=== PATIENT | female | born 1930 | race Caucasian/White ===

== ENCOUNTER 2016-09-12 12:39 | Emergency (ER) | payer BC ==
[~2016-09-12 12:39] MED LIST: ACET500CAP PO; APRES25 PO; ARICEPT10 PO; ASAB PO; ASACOL PO; CALCIUM & VIT D; CALTRA600D PO; COZAAR100 MG PO; DEMA10T PO; DESONATE0.05 % V; DIOV160 PO; DURA25 TOP; FLORINEF0.1 MG PO; FOLBEE PO; HYDRO/APAP PO; ISORDIL20 PO; KLOR-CON M2020 MEQ PO; LYRICA50 PO; METANX PO; MULTIPLE VIT PO; NAMENDA10 MG PO; NEUR300 PO; NORCO PO; NORV25 PO; OYST-CAL500 MG PO; P5 PO; PRILO PO; SODIUM PO; SPIRO50 PO; V180SR PO; VERELAN180 MG PO; VITAMIN C PO; VITAMIN D1000 UNI1 PO; X5 PO; ZOCOR40 PO
[2016-09-12 14:27] LABS: BASOPHILS 0.2 %; BASOPHILS ABSOLUTE 0.02 10/3/uL (0.0-0.16); EOSINOPHILS 0.7 %; EOSINOPHILS ABSOLUTE 0.07 10/3/uL (0.0-0.53); ER CBC TAT 0 Hrs 10 Mins; HEMATOCRIT 36.1 % (36.0-48.0); HEMOGLOBIN 12.5 g/dL (12.0-16.0); IMMATURE GRANULOCYTES 0.4 %; IMMATURE GRANULOCYTES ABSOLUTE 0.04 10/3/uL (0.0-0.11); LYMPHOCYTES 9.1 %; LYMPHOCYTES ABSOLUTE 0.88 10/3/uL (0.67-4.30); MANUAL DIFF NO %; MEAN CORPUS HGB CONC 34.6 g/dL (32.0-36.0); MEAN CORPUSCULAR HEMOGLOB 30.6 pg (26.0-34.0); MEAN CORPUSCULAR VOLUME 88.5 fL (80-100); MEAN PLATELET VOLUME 8.2 fL (9.2-13.0); MONOCYTES 6.4 %; MONOCYTES ABSOLUTE 0.62 10/3/uL (0.21-1.20); NEUTROPHILS 83.2 %; NEUTROPHILS ABSOLUTE 8.01 10/3/uL (2.02-8.40); PLATELET COUNT 266 10/3/uL (150-400); RBC DISTRIBUTION WIDTH 13.5 % (12.0-16.0); RED CELL COUNT 4.08 10/6/uL (4.0-5.6); WHITE BLOOD CELLS 9.6 10/3/uL (4.5-10.5)
[2016-09-12 14:32] LABS: INTERNATIONAL NORMAL RATI 1.3 UNITS (-); PARTIAL THROMBO TIME 32.3 SEC (22.5-37.2); PROTIME (NOT ORD) 16.2 SEC (12.0-14.5)
[2016-09-12 14:34] LABS: ASCORBIC ACID (UR NOT ORDER) NEG (NEG); BILIRUBIN, URINE NEGATIVE (NEG); KETONE, URINE NEGATIVE (NEG); LEUKOCYTE ESTERASE(NOT OR TRACE (NEG); NITRITE (URINE) NEG (NEG); WBC (NOT ORDERED) (RFLEX) 1 (0-5)
[2016-09-12 14:46] LABS: BUN (BLOOD UREA NITROGEN) 25 MG/DL (6-23); CHEST PAIN PROFILE TAT 0 Hrs 29 Mins; CHLORIDE, SERUM 95 MMOL/L (96-112); CO2 (CARBON DIOXIDE) 29 MMOL/L (24-34); GFR AFRICAN AMERICAN 43 ML/MIN (>=60); GFR NON AFRICAN AMERICAN 37 ML/MIN (>=60); GLUCOSE, SERUM 93 MG/DL (60-99); POTASSIUM, SERUM 4.3 MMOL/L (3.5-5.3); SODIUM, SERUM 130 MMOL/L (135-148); TROPONIN I <0.02 NG/ML (<0.05)
[2016-09-12 14:47] LABS: CALCIUM, SERUM 9.9 MG/DL (8.5-10.4)
[2016-11-28] MEDS ORDERED: ELIQUIS 2.5 MG2.5 MG PO (13:36)
[2016-11-28] MEDS ORDERED: COREG3 PO (13:43)
[2016-11-28] MEDS ORDERED: SPIRO25 PO (13:44)
[2016-11-28] MEDS ORDERED: PEP20 PO (14:11)
== END 2016-09-12 18:07 | disposition home or self-care (01) ==
LOC: ER 12:39
PROVIDERS: Emergency Medicine
DX: R55 Syncope and collapse (principal); I11.0 Hypertensive heart disease with heart failure; I50.9 Heart failure, unspecified; I48.91 Unspecified atrial fibrillation; K21.9 Gastro-esophageal reflux disease without esophagitis; Z88.5 Allergy status to narcotic agent; Z79.82 Long term (current) use of aspirin; Z79.899 Other long term (current) drug therapy
CPT/HCPCS: 80048; 81001; 83735; 84484; 85025; 85610; 85730; 93005; 99284